=== PATIENT | male | born 1965 | race Caucasian/White ===

== ENCOUNTER 2017-02-13 09:02 | Emergency (ER) | payer OTHER ==
[2017-02-13 11:30] VITALS: BP 122/89
== END 2017-02-13 11:30 | disposition home or self-care (01) ==
LOC: ED 09:02
DX: S76.011A Strain of muscle, fascia and tendon of right hip, initial encounter (principal); W50.0XXA Accidental hit or strike by another person, initial encounter; Y93.89 Activity, other specified; Y92.89 Other specified places as the place of occurrence of the external cause; Y99.8 Other external cause status
CPT/HCPCS: J1170; J1885; J2270; Q0162

== ENCOUNTER 2017-12-18 20:09 | Emergency (ER) | payer OTHER ==
[~2017-12-18] VITALS: Ht 188 cm; Wt 135.2 kg
[2017-12-18 20:16] VITALS: Ht 188 cm; Wt 135.2 kg
[2017-12-18 21:31] LABS: BASOPHIL % 0.8 % (0-2); PLATELET COUNT 227 x10^3mcL (130-400); RED CELL DISTRIBUTION WIDTH 13.3 % (11.5-14.5)
[2017-12-18 21:44] LABS: CALCIUM 8.7 mg/dL (8.5-10.1); CARBON DIOXIDE 27.3 mmol/L (21-32); CHLORIDE SERUM 105 mmol/L (98-107); CREATININE SERUM 1.3 mg/dL (0.7-1.3); GFR1 > 60 mL/min; GLUCOSE SERUM 144 mg/dL (74-106); POTASSIUM SERUM 3.6 mmol/L (3.5-5.1); SODIUM SERUM 142 mmol/L (136-145)
[2017-12-19 01:16] VITALS: BP 112/72
== END 2017-12-19 01:16 | disposition home or self-care (01) ==
LOC: ED 20:09
PROVIDERS: Emergency Medicine
DX: M54.5 Low back pain (principal); M54.6 Pain in thoracic spine; R07.89 Other chest pain
CPT/HCPCS: J1885; J2270; J7030; Q0162; Q9967

== ENCOUNTER 2018-02-26 14:14 | Emergency (ER) | payer OTHER ==
[~2018-02-26] VITALS: Ht 188 cm; Wt 131.6 kg
[2018-02-26 14:21] VITALS: Ht 188 cm; Wt 131.6 kg
[2018-02-26 16:12] VITALS: BP 127/78
== END 2018-02-26 16:12 | disposition home or self-care (01) ==
LOC: ED 14:14
DX: S81.811A Laceration without foreign body, right lower leg, initial encounter (principal); W55.41XA Bitten by pig, initial encounter; Y93.89 Activity, other specified; Y92.89 Other specified places as the place of occurrence of the external cause; Y99.8 Other external cause status

== ENCOUNTER 2018-03-02 10:19 | Emergency (ER) | payer OTHER ==
[~2018-03-02] VITALS: Ht 188 cm; Wt 131.5 kg
[2018-03-02 10:33] VITALS: Ht 188 cm; Wt 131.5 kg
[2018-03-02 12:15] VITALS: BP 139/83
== END 2018-03-02 12:15 | disposition home or self-care (01) ==
LOC: ED 10:19
DX: S81.851A Open bite, right lower leg, initial encounter (principal); L03.115 Cellulitis of right lower limb; W55.41XA Bitten by pig, initial encounter; Y93.89 Activity, other specified; Y92.89 Other specified places as the place of occurrence of the external cause; Y99.8 Other external cause status
CPT/HCPCS: J0696

== ENCOUNTER 2018-03-25 23:00 | Emergency (ER) | payer OTHER ==
[~2018-03-25] VITALS: Ht 188 cm; Wt 132.9 kg
[2018-03-25 23:22] VITALS: Ht 188 cm; Wt 132.9 kg
[2018-03-26 03:19] VITALS: BP 100/66
== END 2018-03-26 03:19 | disposition home or self-care (01) ==
LOC: ED 23:00
DX: S81.851A Open bite, right lower leg, initial encounter (principal); W55.41XA Bitten by pig, initial encounter; Y93.89 Activity, other specified; Y92.89 Other specified places as the place of occurrence of the external cause; Y99.8 Other external cause status
CPT/HCPCS: J2270; J3490; Q0092

== ENCOUNTER 2018-05-12 08:24 | Emergency (ER) | payer OTHER ==
[~2018-05-12] VITALS: Ht 188 cm; Wt 131.5 kg
[2018-05-12 08:32] VITALS: Ht 188 cm; Wt 131.5 kg
[2018-05-12 10:17] VITALS: BP 140/84
== END 2018-05-12 10:17 | disposition home or self-care (01) ==
LOC: ED 08:24
DX: G89.29 Other chronic pain (principal); M54.6 Pain in thoracic spine
CPT/HCPCS: J2405; J3010; J3490

== ENCOUNTER 2018-07-07 09:56 | Emergency (ER) | payer OTHER ==
[~2018-07-07] VITALS: Ht 188 cm; Wt 125.6 kg
[2018-07-07 10:05] VITALS: Ht 188 cm; Wt 125.6 kg
[2018-07-07 13:08] VITALS: BP 116/72
== END 2018-07-07 13:08 | disposition home or self-care (01) ==
LOC: ED 09:56
DX: G89.29 Other chronic pain (principal); M54.6 Pain in thoracic spine; Z98.890 Other specified postprocedural states; F32.9 Major depressive disorder, single episode, unspecified
CPT/HCPCS: J2405; J3010; J3490

== ENCOUNTER 2018-08-19 08:50 | Emergency (ER) | payer OTHER ==
[~2018-08-19] VITALS: Ht 188 cm; Wt 124.7 kg
[2018-08-19 08:55] VITALS: Ht 188 cm; Wt 124.7 kg
[2018-08-19 11:09] VITALS: BP 113/76
== END 2018-08-19 11:14 | disposition home or self-care (01) ==
LOC: ED 08:50
DX: G89.29 Other chronic pain (principal); M54.9 Dorsalgia, unspecified; M25.561 Pain in right knee; F32.9 Major depressive disorder, single episode, unspecified; Z98.890 Other specified postprocedural states
CPT/HCPCS: J2405; J3010; J3490

== ENCOUNTER 2018-12-19 10:36 | Emergency (ER) | payer OTHER ==
[~2018-12-19] VITALS: Ht 188 cm; Wt 119.3 kg
[2018-12-19 10:52] VITALS: Ht 188 cm; Wt 119.3 kg
[2018-12-19 12:47] VITALS: BP 105/54
== END 2018-12-19 12:49 | disposition home or self-care (01) ==
LOC: ED 10:36
DX: G89.29 Other chronic pain (principal); M54.6 Pain in thoracic spine; F32.9 Major depressive disorder, single episode, unspecified; Z98.890 Other specified postprocedural states
CPT/HCPCS: J2405; J3010; J3490